=== PATIENT | male | born 1995 | race Caucasian/White ===

== ENCOUNTER → 2021-04-18 | Outpatient (CLI) | payer OTHER ==
[2021-04-18 07:43] LABS: BUN/CREATININE RATIO 15 (0-10)
[2021-04-18 08:24] LABS: HEMOGLOBIN 15.3 gm/dl (14.0-17.5); RED BLOOD COUNT 4.88 M/UL (4.20-5.50); WHITE BLOOD COUNT 8.4 K/UL (4.5-11.0)
[2021-04-19 09:12] LABS: VITAMIN D, 25-HYDROXY 33.9 ng/mL (30.0-100.0)
== END ==
LOC: LAB 06:34
PROVIDERS: Nurse Practitioner Family
DX: Z13.220 Encounter for screening for lipoid disorders (principal); R53.82 Chronic fatigue, unspecified; R19.06 Epigastric swelling, mass or lump
CPT/HCPCS: 36415; 74018; 80053; 80061; 81001; 83036; 84436; 84443; 84480; 85025